=== PATIENT | male | born 1970 | race Caucasian/White ===

== ENCOUNTER 2024-02-13 22:56 | Inpatient (IN) | payer BC ==
[~2024-02-13] VITALS: Ht 180.3 cm; Wt 115.4 kg
[2024-02-14] VITALS (7 sets, daily range): BP systolic 132–140; BP diastolic 51–75; PULSE 69–87; RESP 18–20; TEMP 98.1–99.1; O2SAT 95–97
[2024-02-14] MEDS ORDERED: VANCOMYCIN PROTOCOL PER PHARMACY IV SCH
[2024-02-14] MEDS: [UNRECOGNIZED DRUG - OTHER] IV ONE (00:11)
[2024-02-14] MEDS: ZOSYN 3.375GM+NS 50ML 50 ML IVPB STA (00:12)
[2024-02-14] MEDS: VANCOMYCIN 1G/250ML KIT 250 ML IV ONE ×2 (00:12→00:15)
[2024-02-14 00:15] LABS: APPEARANCE,URINE CLEAR (CLEAR); BILIRUBIN,URINE NEGATIVE (NEGATIVE); COLOR,URINE LIGHT-YELLOW (YELLOW); GLUCOSE, URINE (UA) >=1000 mg/dL (NEGATIVE); KETONES,URINE NEGATIVE (NEGATIVE); LEUKOCYTE ESTERASE ,URINE NEGATIVE Leu/uL (NEGATIVE); NITRATE,URINE NEGATIVE (NEGATIVE); OCCULT BLOOD,URINE NEGATIVE (NEGATIVE); PH,URINE 5.5 (5.0-8.0); PROTEIN,URINE NEGATIVE (NEGATIVE); UROBILINOGEN,URINE 0.2 mg/dL (0.2-1.0)
[2024-02-14 00:21] LABS: ADD UA MICROSCOPIC YES
[2024-02-14 00:28] LABS: BACTERIA,URINE None Seen /HPF (None Seen); RBC,URINE 0-1 /HPF (0-1); WBC,URINE 0-1 /HPF (0-1)
[2024-02-14 00:28] LABS: BASOPHILS # (AUTO) 0.02 K/uL (0.00-0.20); BASOPHILS % (AUTO) 0.3 % (0.0-5.0); EOSINOPHILS # (AUTO) 0.16 K/uL (0.00-0.70); HEMATOCRIT 34.4 % (42-54); IMMATURE GRANULOCYTE ABSOLUTE 0.05 K/uL (0-1); LYMPHOCYTES # (AUTO) 1.5 K/uL (1.0-4.8); LYMPHOCYTES % (AUTO) 18.5 % (21.0-51.0); MEAN CORPUSCULAR HEMOGLOBIN 27.6 pg (27.0-33.0); MEAN CORPUSCULAR HGB CONC 33.7 g/dL (32.0-36.0); MEAN CORPUSCULAR VOLUME 81.9 fL (79-99); MONOCYTES # (AUTO) 0.7 K/uL (0.1-1.0); MONOCYTES % (AUTO) 8.8 % (3.0-13.0); NEUTROPHILS # (AUTO) 5.5 K/uL (1.8-7.7); NEUTROPHILS % (AUTO) 69.8 % (40.0-77.0); PLATELET COUNT (AUTO) 194 K/uL (130-400); RED CELL DISTRIBUTION WIDTH 13.3 % (11.0-15.5); WHITE BLOOD COUNT (AUTO) 7.9 K/uL (4.8-10.8)
[2024-02-14 00:50] LABS: ALBUMIN 2.4 g/dL (3.5-5.0); BILIRUBIN,DIRECT 0.1 mg/dL (0.0-0.3); BILIRUBIN,TOTAL 0.3 mg/dL (0.2-1.0); TOTAL PROTEIN, SERUM 6.6 g/dL (6.0-8.3)
[2024-02-14 01:12] LABS: B-TYPE NATRIURETIC PEPTIDE 85 pg/mL (0-100)
[2024-02-14 01:42] LABS: ERYTHROCYTE SEDIMENTATION RATE 59 MM/HR (0-20)
[2024-02-14] MEDS: INSULIN humuLIN R 100 UNIT/ML 3ML IV ONE (02:01)
[2024-02-14] MEDS ORDERED: GLUCAGON 1MG KIT 1 MG ML IM PRN (04:00)
[2024-02-14] MEDS ORDERED: ONDANSETRON 4MG INJ IV PRN (04:00)
[2024-02-14] MEDS ORDERED: VANCOMYCIN PROTOCOL PER PHARMACY IV PRN (04:00)
[2024-02-14] MEDS ORDERED: POTASSIUM CHLORIDE 10% ELIXIR 20 MEQ/15 ML UDCUP PO PRN (04:00)
[2024-02-14] MEDS ORDERED: POTASSIUM CHLORIDE 20MEQ/100ML 100 ML IV PRN (04:00)
[2024-02-14] MEDS ORDERED: DEXTROSE 50%-WATER 50 ML DISP.SYRIN IV PRN (04:00)
[2024-02-14] MEDS ORDERED: KCL 20 MEQ ERTAB PO PRN (04:00)
[2024-02-14] MEDS ORDERED: acetaMINOPHEN 325 MG TAB PO PRN (04:00)
[2024-02-14] MEDS: 0.9%NACL 1000ML 1,000 ML IV SCH (04:45)
[2024-02-14] MEDS: HEParin 5,000 UNIT VIAL SQ SCH (04:46)
[2024-02-14 05:37] LABS: BASOPHILS # (AUTO) 0.01 K/uL (0.00-0.20); BASOPHILS % (AUTO) 0.1 % (0.0-5.0); EOSINOPHILS # (AUTO) 0.18 K/uL (0.00-0.70); EOSINOPHILS % (AUTO) 2.6 % (0.0-8.0); HEMATOCRIT 33.4 % (42-54); IMMATURE GRANULOCYTE ABSOLUTE 0.09 K/uL (0-1); LYMPHOCYTES # (AUTO) 1.1 K/uL (1.0-4.8); LYMPHOCYTES % (AUTO) 16.1 % (21.0-51.0); MEAN CORPUSCULAR HEMOGLOBIN 28.2 pg (27.0-33.0); MEAN CORPUSCULAR HGB CONC 34.1 g/dL (32.0-36.0); MEAN CORPUSCULAR VOLUME 82.7 fL (79-99); MONOCYTES # (AUTO) 0.5 K/uL (0.1-1.0); MONOCYTES % (AUTO) 7.7 % (3.0-13.0); NEUTROPHILS # (AUTO) 5.1 K/uL (1.8-7.7); NEUTROPHILS % (AUTO) 72.2 % (40.0-77.0); PLATELET COUNT (AUTO) 176 K/uL (130-400); RED BLOOD CELL COUNT(AUTO) 4.04 MIL/uL (4.50-6.20); RED CELL DISTRIBUTION WIDTH 13.3 % (11.0-15.5)
[2024-02-14 05:55] LABS: ALBUMIN 2.1 g/dL (3.5-5.0); BILIRUBIN,TOTAL 0.3 mg/dL (0.2-1.0); CREATININE 0.8 mg/dL (0.5-1.3); MAGNESIUM 1.6 mg/dL (1.80-2.40); POTASSIUM 3.8 mmol/L (3.5-5.1); TOTAL PROTEIN, SERUM 5.9 g/dL (6.0-8.3)
[2024-02-14] MEDS: ZOSYN 3.375GM+NS 50ML 50 ML IV SCH (05:59)
[2024-02-14 06:01] LABS: HEMOGLOBIN A1C 11.3 % (4.0-6.0)
[2024-02-14] MEDS: INSULIN humuLIN R 100 UNIT/ML 3ML SQ SCH (07:20)
[2024-02-14] MEDS: MAGNESIUM 2GM PREMIX 50ML 50 ML IV PRN (09:32)
[2024-02-14] MEDS: FAMOTIDINE 20MG TAB PO SCH (09:32)
[2024-02-14] MEDS: VANCOMYCIN 1.5 GM/250 ML BAG 250 ML IV SCH (11:43)
[2024-02-14] MEDS: NICOTINE 21 MG/ 24 HR PATCH TD ONE (15:15)
[2024-02-14] MEDS: hydrOXYzine 25 MG TABLET PO ONE (16:19)
[2024-02-15] VITALS (25 sets, daily range): BP systolic 116–168; BP diastolic 60–83; PULSE 56–85; RESP 14–20; TEMP 97.6–99.3; O2SAT 94–96
[2024-02-15 03:57] LABS: HEMATOCRIT 31.5 % (42-54); MEAN CORPUSCULAR HEMOGLOBIN 27.9 pg (27.0-33.0); MEAN CORPUSCULAR HGB CONC 33.3 g/dL (32.0-36.0); MEAN CORPUSCULAR VOLUME 83.6 fL (79-99); RED BLOOD CELL COUNT(AUTO) 3.77 MIL/uL (4.50-6.20); RED CELL DISTRIBUTION WIDTH 13.2 % (11.0-15.5); WHITE BLOOD COUNT (AUTO) 7.4 K/uL (4.8-10.8)
[2024-02-15] MEDS: NICOTINE 21 MG/ 24 HR PATCH TD SCH (09:12)
[2024-02-15] MEDS: 0.9%NACL 1000ML 1,000 ML IV ONE (12:18)
[2024-02-15] MEDS ORDERED: MIDAZOLAM HCL 1 MG/ML 2ML VIAL ONE (12:53)
[2024-02-15] MEDS ORDERED: FENTanyl CITRate PF 50 MCG/1 ML 2ML VIAL ONE ×3 (12:53→14:11)
[2024-02-15] MEDS ORDERED: proPOFol 10 MG/ML 20ML VIAL IV ONE (12:55)
[2024-02-15] MEDS: LIDOCAINE HCL 1% 20 ML VIAL ONE (13:23)
[2024-02-15] MEDS: BUPIvacaine/PF 0.5% 30ML VIAL ONE (13:23)
[2024-02-15] MEDS: hydrOXYzine 25 MG TABLET PO PRN (20:59)
[2024-02-15] MEDS: traMADol /APAP 37.5MG/325MG TAB PO PRN (23:46)
[2024-02-16] VITALS: BP 132/63; PULSE 83; RESP 20; TEMP 98.5
[2024-02-16 04:00] VITALS: BP 143/66; PULSE 67; RESP 20; TEMP 99.2
[2024-02-16 05:21] LABS: HEMATOCRIT 29.1 % (42-54); MEAN CORPUSCULAR HEMOGLOBIN 27.4 pg (27.0-33.0); MEAN CORPUSCULAR VOLUME 83.1 fL (79-99); RED BLOOD CELL COUNT(AUTO) 3.5 MIL/uL (4.50-6.20); RED CELL DISTRIBUTION WIDTH 13.5 % (11.0-15.5); WHITE BLOOD COUNT (AUTO) 7.7 K/uL (4.8-10.8)
[2024-02-16 05:53] LABS: ALBUMIN 1.7 g/dL (3.5-5.0); BILIRUBIN,TOTAL 0.3 mg/dL (0.2-1.0); CREATININE 0.8 mg/dL (0.5-1.3); MAGNESIUM 1.5 mg/dL (1.80-2.40); POTASSIUM 4.1 mmol/L (3.5-5.1); TOTAL PROTEIN, SERUM 5.3 g/dL (6.0-8.3)
[2024-02-16 08:00] VITALS: BP 118/66; PULSE 70; RESP 19; TEMP 98.1; O2SAT 94
[2024-02-16 12:00] VITALS: BP 150/76; PULSE 67; RESP 19; TEMP 98.5
[2024-02-16 16:00] VITALS: BP 158/81; PULSE 77; RESP 19; TEMP 98.8
[2024-02-16 20:00] VITALS: BP 124/60; PULSE 68; RESP 19; TEMP 98.4
[2024-02-17] VITALS (14 sets, daily range): BP systolic 121–142; BP diastolic 60–78; PULSE 59–76; RESP 11–20; TEMP 98.1–99.1; O2SAT 94
[2024-02-17] MEDS ORDERED: morPHINE 2 MG SYG IVP PRN (00:30)
[2024-02-17 04:18] LABS: MEAN CORPUSCULAR HEMOGLOBIN 26.9 pg (27.0-33.0); MEAN CORPUSCULAR HGB CONC 32.7 g/dL (32.0-36.0); MEAN CORPUSCULAR VOLUME 82.4 fL (79-99); RED BLOOD CELL COUNT(AUTO) 3.64 MIL/uL (4.50-6.20); RED CELL DISTRIBUTION WIDTH 13.7 % (11.0-15.5); WHITE BLOOD COUNT (AUTO) 5.6 K/uL (4.8-10.8)
[2024-02-17 04:34] LABS: INR 0.96 (0.85-1.15); PROTHROMBIN TIME 10.4 SEC (9.6-11.6)
[2024-02-17 04:36] LABS: PARTIAL THROMBOPLASTIN TIME 26.2 SEC (26.3-35.5)
[2024-02-17 04:40] LABS: ALBUMIN 1.7 g/dL (3.5-5.0); BILIRUBIN,TOTAL 0.3 mg/dL (0.2-1.0); CREATININE 0.8 mg/dL (0.5-1.3); MAGNESIUM 1.8 mg/dL (1.80-2.40); POTASSIUM 3.8 mmol/L (3.5-5.1); TOTAL PROTEIN, SERUM 5.6 g/dL (6.0-8.3)
[2024-02-17] MEDS: MAGNESIUM 2GM PREMIX 50ML 50 ML IV SCH (05:39)
[2024-02-17] MEDS: HEParin 5,000 UNIT VIAL SQ SCH (09:00)
[2024-02-17] MEDS ORDERED: IODIXANOL 320 MG/ML 100 ML VIAL ONE (11:04)
[2024-02-17] MEDS ORDERED: LIDOCAINE HCL 400MG/20ML VIAL ONE (11:04)
[2024-02-17] MEDS ORDERED: HEParin-NS 1,000 UNIT/500 ML 1,000 ML IV ONE (11:04)
[2024-02-17] MEDS ORDERED: NITROGLYCERIN 50MG VIAL ONE (11:05)
[2024-02-17] MEDS ORDERED: MIDAZOLAM HCL 1 MG/ML 2ML VIAL ONE (11:10)
[2024-02-17] MEDS ORDERED: FENTanyl CITRate PF 50 MCG/1 ML 2ML VIAL ONE (11:10)
[2024-02-17] MEDS ORDERED: IOHEXOL-350 50ML VIAL IV ONE (12:01)
[2024-02-17] MEDS ORDERED: hydrALAZine 20MG/ML VIAL IV PRN (13:00)
[2024-02-17] MEDS: amLODIPine 5 MG TAB PO SCH (13:34)
[2024-02-18] VITALS (23 sets, daily range): BP systolic 106–150; BP diastolic 58–78; PULSE 61–89; RESP 15–22; TEMP 98–99.2
[2024-02-18 05:06] LABS: HEMATOCRIT 30.9 % (42-54); MEAN CORPUSCULAR HEMOGLOBIN 27.4 pg (27.0-33.0); MEAN CORPUSCULAR HGB CONC 32.7 g/dL (32.0-36.0); RED BLOOD CELL COUNT(AUTO) 3.68 MIL/uL (4.50-6.20); RED CELL DISTRIBUTION WIDTH 13.9 % (11.0-15.5)
[2024-02-18 05:19] LABS: ALBUMIN 1.7 g/dL (3.5-5.0); BILIRUBIN,TOTAL 0.3 mg/dL (0.2-1.0); CREATININE 0.8 mg/dL (0.5-1.3); MAGNESIUM 1.8 mg/dL (1.80-2.40); POTASSIUM 3.8 mmol/L (3.5-5.1); TOTAL PROTEIN, SERUM 5.6 g/dL (6.0-8.3)
[2024-02-18] MEDS ORDERED: LIDOCAINE HCL-MPF 1% 5ML AMP IJ ONE (16:40)
[2024-02-18] MEDS ORDERED: proPOFol 10 MG/ML 20ML VIAL IV ONE ×4 (16:40→17:53)
[2024-02-18] MEDS ORDERED: dexaMETHasone SOD PHOSPHATE 4 MG/ML 1ML VIAL ONE (16:40)
[2024-02-18] MEDS ORDERED: FENTanyl CITRate PF 50 MCG/1 ML 2ML VIAL ONE (16:41)
[2024-02-18] MEDS ORDERED: MIDAZOLAM HCL 1 MG/ML 2ML VIAL ONE (16:41)
[2024-02-18] MEDS ORDERED: ONDANSETRON 4MG INJ ONE (16:41)
[2024-02-18] MEDS ORDERED: BUPIvacaine/PF 0.5% 10ML VIAL ONE (17:08)
[2024-02-18] MEDS ORDERED: LIDOCAINE HCL-MPF 2% 10ML AMP IJ ONE (17:08)
[2024-02-18] MEDS: BUPIvacaine/PF 0.5% 10ML VIAL IJ ONE (17:30)
[2024-02-19 00:25] VITALS: BP 141/85; PULSE 78; TEMP 99
[2024-02-19 01:25] VITALS: BP 134/75; PULSE 70
[2024-02-19 03:41] VITALS: BP 114/47; PULSE 80; RESP 22; TEMP 99
[2024-02-19] MEDS: acetaMINOPHEN 325 MG TAB PO PRN (07:50)
[2024-02-19 08:00] VITALS: BP 134/70; PULSE 79; RESP 18; TEMP 99.3; O2SAT 97
[2024-02-19 10:23] LABS: BASOPHILS # (AUTO) 0.02 K/uL (0.00-0.20); BASOPHILS % (AUTO) 0.2 % (0.0-5.0); EOSINOPHILS # (AUTO) 0.16 K/uL (0.00-0.70); EOSINOPHILS % (AUTO) 1.6 % (0.0-8.0); HEMATOCRIT 31.2 % (42-54); IMMATURE GRANULOCYTE ABSOLUTE 0.08 K/uL (0-1); LYMPHOCYTES # (AUTO) 1.3 K/uL (1.0-4.8); LYMPHOCYTES % (AUTO) 13.8 % (21.0-51.0); MEAN CORPUSCULAR HEMOGLOBIN 27.2 pg (27.0-33.0); MEAN CORPUSCULAR HGB CONC 32.7 g/dL (32.0-36.0); MEAN CORPUSCULAR VOLUME 83.2 fL (79-99); MONOCYTES # (AUTO) 0.5 K/uL (0.1-1.0); MONOCYTES % (AUTO) 5.4 % (3.0-13.0); NEUTROPHILS # (AUTO) 7.6 K/uL (1.8-7.7); NEUTROPHILS % (AUTO) 78.2 % (40.0-77.0); PLATELET COUNT (AUTO) 285 K/uL (130-400); RED BLOOD CELL COUNT(AUTO) 3.75 MIL/uL (4.50-6.20); RED CELL DISTRIBUTION WIDTH 14.1 % (11.0-15.5); WHITE BLOOD COUNT (AUTO) 9.7 K/uL (4.8-10.8)
[2024-02-19 10:35] LABS: POTASSIUM 3.9 mmol/L (3.5-5.1)
[2024-02-19 10:51] LABS: CREATININE 0.9 mg/dL (0.5-1.3)
[2024-02-19 12:00] VITALS: BP 136/69; RESP 20; TEMP 98.4
[2024-02-19] MEDS ORDERED: AMLO5TAB4 PO (13:29)
[2024-02-19] MEDS ORDERED: INSU3INS3 SQ (13:29)
[2024-02-19 16:00] VITALS: BP 140/77; PULSE 77; RESP 18; TEMP 99.2
[2024-02-20] MEDS ORDERED: levoFLOXacin 750 MG TABLET PO SCH (09:00)
== END 2024-02-19 18:50 | disposition home health service (06) | DRG 854 ==
LOC: EDH 22:56 → EDHIP 02-14 04:00 → 4BH 02-14 04:49
PROVIDERS: ADMIT Hospitalist; ATTEND Hospitalist
PROC: 0LBW0ZZ Excision of Left Foot Tendon, Open Approach (ICD-10-PCS; 2024-02-15 13:00)
PROC: B41G1ZZ Fluoroscopy of Left Lower Extremity Arteries using Low Osmolar Contrast (ICD-10-PCS; 2024-02-17)
PROC: B4101ZZ Fluoroscopy of Abdominal Aorta using Low Osmolar Contrast (ICD-10-PCS; 2024-02-17)
PROC: 0Y6N0ZB Detachment at Left Foot, Partial 2nd Ray, Open Approach (ICD-10-PCS; principal; 2024-02-18 17:12)
DX: A41.9 Sepsis, unspecified organism (principal); E87.20 Acidosis, unspecified; L03.116 Cellulitis of left lower limb; L02.612 Cutaneous abscess of left foot; M86.8X7 Other osteomyelitis, ankle and foot; E11.65 Type 2 diabetes mellitus with hyperglycemia; S91.332A Puncture wound without foreign body, left foot, initial encounter; E11.621 Type 2 diabetes mellitus with foot ulcer; E11.69 Type 2 diabetes mellitus with other specified complication; E66.01 Morbid (severe) obesity due to excess calories; F17.210 Nicotine dependence, cigarettes, uncomplicated; L97.519 Non-pressure chronic ulcer of other part of right foot with unspecified severity; L97.529 Non-pressure chronic ulcer of other part of left foot with unspecified severity; Z83.3 Family history of diabetes mellitus; Z91.199 Patient's noncompliance with other medical treatment and regimen due to unspecified reason; Z79.899 Other long term (current) drug therapy; Z68.35 Body mass index [BMI] 35.0-35.9, adult
CPT/HCPCS: 36246; 36415; 73630; 73718; 75716; 75774; 80048; 80053; 80061; 80076; 80202; 81001; 82010; 82948; 83036; 83605; 83735; 83880; 84145; 85025; 85027; 85610; 85651; 85730; 87040; 87070; 87076; 87086; 87186; 87205; 88304; 88311; 93005; 93926; 93971; 99156; 99157; C1894; G0378; J1100; J1644; J1815; J2250; J2405; J2543; J2704; J3010; J3370; J3475; J3490; J7030; Q9967; A4600; A4649; A4930; A6210; A6446; A9272; C1729; C1760; C1769; C1887; G8980-CI; G8983-CI; J0665